=== PATIENT | male | born 1950 | race Caucasian/White ===

== ENCOUNTER 2019-04-17 00:14 | Outpatient (CLI) | payer MEDICARE, OTHER ==
[2019-04-17 13:07] LABS: Hemoglobin 13.6 g/dL (14.0-18.0); Mean Corpuscular HGB CONC 33.5 g/dL (32.0-36.0); Mean Corpuscular Hemoglobin 32.3 pg (27.0-31.0); Mean Corpuscular Volume 96.3 fL (78.0-98.0); Mean Platelet Volume 7.8 fL (7.4-10.4); Platelet Count 188 thou/uL (130-400); RBC Distribution Width 12.1 % (11.5-14.5); White Blood Cell (WBC) Count 7.1 thou/uL (4.8-10.8)
[2019-04-17 13:25] LABS: Anion Gap 13 mmol/L (10-20); BUN (Urea Nitrogen) 18 mg/dL (8.4-25.7); Calc. Creatinine Clearance 0 mL/min (70-130); Calcium 9.7 mg/dL (7.8-10.44); Carbon Dioxide 24 mmol/L (23-31); Chloride 105 mmol/L (98-107); Estimated GFR-MDRD 88; Glucose 102 mg/dL (80-115); Potassium 4.1 mmol/L (3.5-5.1); Sodium 138 mmol/L (136-145)
--- NOTE | 2019-04-18 20:24 | EKG ---
Test Reason : Blood Pressure : / mmHG Vent. Rate : 072 BPM Atrial Rate : 072 BPM P-R Int : 178 ms QRS Dur : 138 ms QT Int : 430 ms P-R-T Axes : 068 -54 088 degrees QTc Int : 470 ms Normal sinus rhythm Left axis deviation Left ventricular hypertrophy with QRS widening Abnormal ECG No previous ECGs available Confirmed by DR. Kristi LIVE MD ([id number]) on 04/18/2019 8:24:18 PM Referred By: LISA Confirmed By:DR. Kristi LIVE MD
== END 2019-04-17 00:15 | disposition home or self-care (01) ==
LOC: LABBT 00:14
PROVIDERS: ATTEND Thoracic Surgery (Cardiothoracic Vascular Surgery)
DX: Z01.818 Encounter for other preprocedural examination (principal); I25.10 Atherosclerotic heart disease of native coronary artery without angina pectoris
CPT/HCPCS: 80048; 85027; 93005; 93010

== ENCOUNTER 2019-04-17 11:30 | Inpatient (IN) | payer OTHER ==
[2019-04-18] MEDS ORDERED: Midazolam HCl 5 mg/5 ml Vial ONE (06:38)
[2019-04-18] MEDS ORDERED: Fentanyl 250 MCG/5 ML VIAL ONE ×2 (06:38)
[2019-04-18] MEDS ORDERED: Albumin 5% 500 ML ONE (06:45)
[2019-04-18] MEDS ORDERED: Heparin 10,000 UNITS/1 ML VIAL 30,000 UNITS in Sodium Chloride 0.9% 1,000 ML FS SCH (07:00)
[2019-04-18] MEDS ORDERED: Midazolam HCl 2 mg/2 ml Vial ONE (07:12)
[2019-04-18] MEDS ORDERED: Bisacodyl 10 MG SUPP PR PRN (11:09)
[2019-04-18] MEDS ORDERED: DOPamine 400 MG/D5W 250 ML 250 ML IVPB PRN (11:09)
[2019-04-18] MEDS ORDERED: Morphine 2 MG/ML SYRINGE SLOW IVP PRN (11:09)
[2019-04-18] MEDS ORDERED: Post-Op Insulin Drip Protocol IVPB ONE (11:09)
[2019-04-18] MEDS ORDERED: Acetaminophen 325 MG TAB PO PRN (11:09)
[2019-04-18] MEDS ORDERED: HYDROcodone/Acetaminophen 5/325 mg Tablet PO PRN (11:09)
[2019-04-18] MEDS ORDERED: Magnesium 2 GM/50 ML 2 GM in Premix Bag 1 BAG IVPB SCH (11:09)
[2019-04-18] MEDS ORDERED: Promethazine HCl 25 MG/ML VIAL IM PRN (11:09)
[2019-04-18] MEDS ORDERED: Fentanyl 100 MCG/2 ML VIAL SLOW IVP PRN ×2 (11:09)
[2019-04-18] MEDS ORDERED: Hetastarch 6% 500 ML 500 ML IVPB PRN (11:09)
[2019-04-18] MEDS ORDERED: hydrALAZINE 20 MG/ML VIAL SLOW IVP PRN (11:09)
[2019-04-18] MEDS ORDERED: Bisacodyl 5 MG TAB PO PRN (11:09)
[2019-04-18] MEDS ORDERED: Norepinephrine 8 MG/0.9% NS 250 ML IVPB PRN (11:09)
[2019-04-18] MEDS ORDERED: Mag-Al 1200 mg/1200 mg/30 ML UDCUP PO PRN (11:09)
[2019-04-18] MEDS ORDERED: Guaifenesin DM 100-10/5 ML UDCUP PO PRN (11:09)
[2019-04-18] MEDS ORDERED: Potassium Chloride 20 MEQ/100 ML PREMIX BAG IVPB PRN (11:09)
[2019-04-18] MEDS ORDERED: Nitroglycerin 50 MG/250 ML BOT 250 ML IVPB PRN (11:09)
[2019-04-18] MEDS ORDERED: HUMULIN R 100 UNITS in Sodium Chloride 0.9% 100 ML IVPB SCH (11:27)
[2019-04-18] MEDS ORDERED: Insulin Regular 300 UNITS/3 ML VIAL SC PRN (11:27)
[2019-04-18] MEDS ORDERED: Dextrose 50% Abboject 50 ML SYRINGE SLOW IVP PRN (11:27)
[2019-04-18] MEDS ORDERED: Dextrose 5% in Water 1,000 ML IV PRN (11:27)
[2019-04-18 11:33] LABS: Actual Bicarbonate (HCO3a) 23.4 mEq/L (22-28); Base Excess (BEa) -3.9 mEq/L (-2.0 to +3.0); CO2 Tension 51.6 mmHg (35.0-45.0); Calcium, Ionized 1.19 mmol/L (1.12-1.30); Carboxyhemoglobin (COHb) 0.9 gm% (0.0-3.0); Hemoglobin (Hb) 13.8 g/dL (14.0-18.0); O2 Tension (PaO2) 80.9 mmHg (> 80.0); Potassium - ABG Lab 4.79 mmol/L (3.70-5.30); pH, Arterial 7.28 (7.35-7.45)
[2019-04-18] MEDS ORDERED: Morphine 4 MG/ML VIAL ONE (11:33)
[2019-04-18 11:34] LABS: Puncture Site ALINE
[2019-04-18] MEDS ORDERED: Nitroglycerin 50 MG/250 ML BOT 250 ML ONE (11:35)
--- NOTE | 2019-04-18 11:35 | OP ---
DATE OF PROCEDURE: 04/18/2019 PREOPERATIVE DIAGNOSIS: Coronary artery disease. PROCEDURES PERFORMED: Coronary artery bypass graft x2, left internal mammary artery good quality to a 2 to 2.5 mm left anterior descending, saphenous vein good quality to a 1.5 mm diagonal prior to bifurcation. This was the second diagonal. The first diagonal was felt to be too small to graft. SOLAR LAB TECHNICIAN: Ramon. TRANSFUSION: None. DESCRIPTION OF PROCEDURE: After adequate anesthesia had been obtained, the patient was prepped and draped. Dr. Navarro did an endovascular vein harvest of the left greater saphenous vein while I performed a median sternotomy. The right pleura was entered distally and the left pleura was entered during left BEVERLEY harvest. After BEVERLEY harvest, heparin was given. The mammary divided distally, good flow, treated with intraluminal papaverine. A large amount of mediastinal fat was present and this was removed. This allowed the BEVERLEY to progress medial to the pleura with no specific coverage over it. Aorta and right atrium were cannulated and cardiopulmonary bypass was instituted. The patient had a very large heart, not particularly thick though. Aorta was crossclamped and a liter of cold blood cardioplegia was given. Following which, two distal anastomosis were completed. The crossclamp was removed. The partial occluding clamp was placed and a single proximal anastomosis performed on the aortic root and marked with a ring. The patient was then weaned from cardiopulmonary bypass. Cannula was removed. Protamine given systemically and the aortic cannulation site secured with a 4-0 Prolene suture. Mediastinal and bilateral pleural drains were placed, taking care to avoid the midline abdominal incision. Following this, the sternum was reapproximated with a combination of #7 interrupted wires and 3 zip ties in the body of the sternum. Vancomycin paste and platelet poor plasma were used on the bone and then, subcutaneous tissue respectively. Subcu and skin were closed in layers and the patient is to be taken to the ICU in guarded condition. Job ID: [id number]
[2019-04-18 11:43] LABS: INR-International Normal Ratio 1.2; PTT 24.2 SEC (22.9-36.1); Prothrombin Time 15.3 SEC (12.0-14.7)
[2019-04-18 11:56] LABS: Hemoglobin 12.9 g/dL (14.0-18.0); Mean Corpuscular HGB CONC 33.2 g/dL (32.0-36.0); Mean Corpuscular Hemoglobin 32.2 pg (27.0-31.0); Mean Corpuscular Volume 96.9 fL (78.0-98.0); Mean Platelet Volume 7.8 fL (7.4-10.4); Platelet Count 150 thou/uL (130-400); RBC Distribution Width 12.1 % (11.5-14.5); Red Blood Cell (RBC) Count 4.01 mill/uL (4.70-6.10); White Blood Cell (WBC) Count 19.4 thou/uL (4.8-10.8)
[2019-04-18 11:57] LABS: Anion Gap 14 mmol/L (10-20); BUN (Urea Nitrogen) 16 mg/dL (8.4-25.7); Calc. Creatinine Clearance 126 mL/min (70-130); Calcium 8.9 mg/dL (7.8-10.44); Carbon Dioxide 22 mmol/L (23-31); Chloride 105 mmol/L (98-107); Estimated GFR-MDRD 82; Glucose 171 mg/dL (80-115); Potassium 4.9 mmol/L (3.5-5.1); Sodium 136 mmol/L (136-145)
[2019-04-18] MEDS: BEER 1 CAN PO SCH ×2 (11:58→17:18)
[2019-04-18] MEDS: Lactated Ringer's 1,000 ML IV SCH ×2 (12:00→22:33)
[2019-04-18] MEDS: Ketorolac Tromethamine 30 MG/ML VIAL IVP SCH ×3 (12:01→23:29)
[2019-04-18] MEDS: Ondansetron PF 4 MG/2 ML Vial IVP PRN (12:03)
[2019-04-18 12:14] LABS: #Basophils 0.1 thou/uL (0.0-0.2); #Eosinphils 0.4 thou/uL (0.0-0.7); %Basophils 0.3 % (0.0-1.0); %Eosinophils 1.9 % (0.0-10.0); %Lymphocytes 10.3 % (21.0-51.0); %Monocytes 5.1 % (0.0-10.0); %Neutrophils 82.4 % (42.0-75.0); Band 11 % (5-11); Eosinophils 2 % (0-10); Lymphocytes 11 % (21-51); MDiff Complete? YES; Monocytes 7 % (0-10); Neutrophil 69 % (42-75); RBC Morphology Normal
--- NOTE | 2019-04-18 12:49 | RAD ---
CHEST 1 VIEW: Date: 04/18/19 HISTORY: Heart surgery. FINDINGS: Cardiac silhouette is magnified and upper limits of normal in size. Shallow inspiration accentuates p ulmonary markings. Mediastinum is midline with postoperative changes. Tip of an endotracheal catheter lies just above the level of the elinor. Radiopaque drain over the mediastinum. Tip of a right subcl altaf central venous catheter overlies the cavoatrial junction. Bilateral thoracostomy tubes in place . No gross pneumothorax on this portable supine exam. quality assurance monitor body leads overlie the chest. IMPRESSION: Postoperative changes of mediastinum with lines and tubes as detailed above. POS: CET
[2019-04-18] MEDS: CEFAZOLIN 2 GM in Premix Bag 1 BAG IVPB SCH ×2 (14:14→22:33)
[2019-04-18 14:16] LABS: Base Excess (BEa) -3.7 mEq/L (-2.0 to +3.0); CO2 Tension 42.3 mmHg (35.0-45.0); Calcium, Ionized 1.19 mmol/L (1.12-1.30); Carboxyhemoglobin (COHb) 1.2 gm% (0.0-3.0); Hemoglobin (Hb) 12.7 g/dL (14.0-18.0); O2 Tension (PaO2) 90.5 mmHg (> 80.0); Puncture Site ALINE; pH, Arterial 7.33 (7.35-7.45)
[2019-04-18 14:17] LABS: ALV-art Gradient 213.125 (0-20)
[2019-04-18] MEDS: HYDROcodone/Acetaminophen 5/325 mg Tablet PO PRN ×3 (15:13→23:29)
[2019-04-18 17:16] LABS: Potassium 4.5 mmol/L (3.5-5.1)
--- NOTE | 2019-04-18 20:31 | EKG ---
Test Reason : S/P CABG Blood Pressure : / mmHG Vent. Rate : 105 BPM Atrial Rate : 105 BPM P-R Int : 166 ms QRS Dur : 144 ms QT Int : 386 ms P-R-T Axes : 054 -52 101 degrees QTc Int : 510 ms Sinus tachycardia Left axis deviation Left bundle branch block Abnormal ECG When compared with ECG of 17-APR-2019 12:02, (Unconfirmed) Left bundle branch block is now Present Confirmed by CALOS DENNY, SFredrick ([id number]) on 04/18/2019 8:31:04 PM Referred By: LISA Confirmed By:DR. Kristi LIVE MD
--- NOTE | 2019-04-18 21:03 | CON ---
DATE OF CONSULTATION: 04/18/2019 REASON FOR CONSULTATION: CAD post CABG. HISTORY OF PRESENT ILLNESS: Mr. Randall is a pleasant 68-year-old white gentleman, who comes to the hospital as a planned bypass surgery, it was done earlier this morning by Dr. Pastor. He is a and gets most of his care at the [facility] in [place]. He had a heart catheterization done recently that showed a complex LAD diagonal bifurcating disease that was not amenable to catheter based revascularization, so he was referred for bypass surgery. He elected to come to Dr. Pastor for this who performed CABG x2 earlier today with a BANKS to the LAD and vein graft to a diagonal. He is doing very well. He is now extubated. He admits to some soreness on his chest, but this is related to his recent surgery. He has not passed any gas, however, he does not feel bloated in any way. PAST MEDICAL HISTORY: 1. Hyperlipidemia. 2. Hypertension. 3. GERD. 4. Gout. 5. CAD. 6. Sleep apnea. 7. Hiatal hernia. SOCIAL HISTORY: Drinks 6 beers a day. Quit smoking in 1988. No drug use. ALLERGIES: PRAVASTATIN. OUTPATIENT MEDICATIONS: 1. Atorvastatin 40 mg a day. 2. Amlodipine. 3. Allopurinol 100 mg q.i.d. 4. Aspirin 81 a day. 5. Omeprazole 20 mg a day. 6. Naproxen 500 mg b.i.d. 7. Lisinopril 40 mg a day. 8. Carvedilol 6.25 b.i.d. PAST SURGICAL HISTORY: 1. CABG x2 as above. 2. Bilateral total knee replacements. 3. Eyebrow lift. 4. Left CTR. REVIEW OF SYSTEMS: A 12-point review of systems was done and was all negative unless stated in the history of present illness. PHYSICAL EXAMINATION: VITAL SIGNS: Temperature 97.8, pulse is 97, respiratory rate 22, saturating 93% on room air, and blood pressure 141/59. GENERAL: Awake, alert, and oriented x3. No distress. HEENT: Normocephalic, atraumatic. NECK: Supple. LUNGS: Clear. CARDIOVASCULAR: S1 and S2. No S3 or S4. No murmurs. ABDOMEN: Soft. Positive bowel sounds. EXTREMITIES: 1+ edema. SKIN: Warm and dry. LABORATORY DATA: Laboratory work was reviewed. White count of 19, hemoglobin of 12, hematocrit 38, and platelet count of 150. Coags reviewed. ABG was reviewed. Chemistries were reviewed. Most recent; sodium 136, potassium 4.9, chloride 105, carbon dioxide of 22, anion gap of 14, BUN of 16, creatinine 0.92, GFR of 82. ASSESSMENT AND PLAN: 1. Coronary artery disease, status post coronary artery bypass grafting x2 with a BANKS to the LAD and a vein graft to the diagonal. 2. Hypertension. 3. Hyperlipidemia. PLAN: 1. Continue postoperative care. 2. Continue incentive spirometer use. 3. Start physical therapy as soon as tolerated and increase as tolerated. 4. Aspirin and statin for life. 5. We will restart a beta jose cruz and ALEJANDRA inhibitor if the blood pressure remains stable. Thank you for letting me to participate in the care of your patient. We will follow. Job ID: [id number]
[2019-04-18] MEDS: Atorvastatin Calcium 40 MG TAB PO SCH (22:33)
[2019-04-18] MEDS: Famotidine/PF 20 mg/2ml Vial SLOW IVP SCH (22:33)
[2019-04-19] MEDS: HYDROcodone/Acetaminophen 5/325 mg Tablet PO PRN ×5 (04:02→21:24)
[2019-04-19 04:30] LABS: #Basophils 0.1 thou/uL (0.0-0.2); #Eosinphils 0.1 thou/uL (0.0-0.7); #Lymphocytes 1.6 thou/uL (1.20-3.40); #Monocytes 1.2 thou/uL (0.11-0.59); %Basophils 0.5 % (0.0-1.0); %Eosinophils 1.4 % (0.0-10.0); %Lymphocytes 16.3 % (21.0-51.0); %Monocytes 11.5 % (0.0-10.0); %Neutrophils 70.2 % (42.0-75.0); Hemoglobin 11.4 g/dL (14.0-18.0); Mean Corpuscular HGB CONC 34.2 g/dL (32.0-36.0); Mean Corpuscular Hemoglobin 33.3 pg (27.0-31.0); Mean Corpuscular Volume 97.3 fL (78.0-98.0); Platelet Count 129 thou/uL (130-400); Red Blood Cell (RBC) Count 3.43 mill/uL (4.70-6.10)
[2019-04-19 04:52] LABS: Anion Gap 9 mmol/L (10-20); BUN (Urea Nitrogen) 16 mg/dL (8.4-25.7); Calc. Creatinine Clearance 139 mL/min (70-130); Calcium 8.5 mg/dL (7.8-10.44); Carbon Dioxide 27 mmol/L (23-31); Chloride 103 mmol/L (98-107); Estimated GFR-MDRD 90; Glucose 103 mg/dL (80-115); Potassium 4.1 mmol/L (3.5-5.1); Sodium 135 mmol/L (136-145)
[2019-04-19] MEDS: Ketorolac Tromethamine 30 MG/ML VIAL IVP SCH ×3 (06:16→17:15)
[2019-04-19] MEDS: CEFAZOLIN 2 GM in Premix Bag 1 BAG IVPB SCH (06:17)
--- NOTE | 2019-04-19 07:44 | RAD ---
AP view chest HISTORY: Open heart surgery. AP view chest is obtained on 04/19/2019. Comparison made to previous exam from 04/18/2019. AP view chest demonstrates interval extubation of the patient. Sternotomy wires again seen. Mediastinal surgical drains in place. Right subclavian central line in place. Cardiomegaly seen. There are areas of linear density in both lung bases compatible with bibasilar atelectasis. No evidence of pneumothorax seen. IMPRESSION: Interval extubation of the patient.
[2019-04-19] MEDS: Famotidine/PF 20 mg/2ml Vial SLOW IVP SCH ×2 (08:11→20:25)
[2019-04-19] MEDS: Carvedilol 3.125 MG TAB PO SCH ×2 (08:12→17:15)
[2019-04-19] MEDS: Ondansetron PF 4 MG/2 ML Vial IVP PRN (08:17)
[2019-04-19] MEDS: BEER 1 CAN PO SCH ×3 (08:40→12:46)
[2019-04-19] MEDS ORDERED: Atorvastatin Calcium 40 MG TAB PO SCH (09:00)
[2019-04-19] MEDS ORDERED: Aspirin 325 MG TAB PO SCH (09:00)
[2019-04-19 10:43] VITALS: BMI 35.4
--- NOTE | 2019-04-19 18:19 | PDOC.CTH ---
Cardiology Progress Note - Subjective Had a syncopal spell today after dry heaving. - Objective Vital Signs Temp Pulse Ox 04/19/19 16:00 97.9 F 04/19/19 12:00 98.7 F 04/19/19 11:00 98 F 04/19/19 08:00 98.6 F 98 Weight 252 lb 10.396 oz 04/18/19 04/19/19 04/20/19 06:59 06:59 06:59 Intake Total 2088.5 820 Output Total 1545 790 Balance 543.5 30 - Physical Examination General/Neuro: alert & oriented x3, NAD Neck: no JVD present Lungs: CTA, unlabored respirations Heart: RRR Abdomen: NT/ND Extremities: + edema B (1+) - Telemetry Telemetry Rhythm: NSR - Labs Result Diagrams: 04/19/19 04:15 04/19/19 04:15 - Assessment/Plan 1. Multivessel CAD. 2. S/P CABG x 2 BANKS to LAD and SVG to diagonal. 3. HTN 4. HLP. PLAN: - Echo to be done - Will add ACEI - Continue ASA/statin/BB. - PT as tolerated. - Syncope likely from dry heaving.
[2019-04-19] MEDS: Atorvastatin Calcium 40 MG TAB PO SCH (20:25)
[2019-04-20] MEDS: Ketorolac Tromethamine 30 MG/ML VIAL IVP SCH ×2 (00:15→06:09)
[2019-04-20] MEDS: HYDROcodone/Acetaminophen 5/325 mg Tablet PO PRN ×4 (04:15→20:18)
[2019-04-20 04:28] LABS: #Eosinphils 0.5 thou/uL (0.0-0.7); #Lymphocytes 1.7 thou/uL (1.20-3.40); #Monocytes 1.2 thou/uL (0.11-0.59); #Neutrophils 6.9 thou/uL (1.40-6.50); %Basophils 0.2 % (0.0-1.0); %Eosinophils 4.5 % (0.0-10.0); %Lymphocytes 16.6 % (21.0-51.0); %Monocytes 11.7 % (0.0-10.0); %Neutrophils 67.1 % (42.0-75.0); Hemoglobin 10.7 g/dL (14.0-18.0); Mean Corpuscular HGB CONC 34.2 g/dL (32.0-36.0); Mean Corpuscular Hemoglobin 33.2 pg (27.0-31.0); Mean Corpuscular Volume 97.1 fL (78.0-98.0); Mean Platelet Volume 8.1 fL (7.4-10.4); Platelet Count 124 thou/uL (130-400); RBC Distribution Width 11.9 % (11.5-14.5); Red Blood Cell (RBC) Count 3.23 mill/uL (4.70-6.10); White Blood Cell (WBC) Count 10.3 thou/uL (4.8-10.8)
[2019-04-20 04:56] LABS: Anion Gap 10 mmol/L (10-20); BUN (Urea Nitrogen) 18 mg/dL (8.4-25.7); Calc. Creatinine Clearance 139 mL/min (70-130); Calcium 8.7 mg/dL (7.8-10.44); Carbon Dioxide 28 mmol/L (23-31); Chloride 103 mmol/L (98-107); Estimated GFR-MDRD 90; Glucose 126 mg/dL (80-115); Potassium 3.8 mmol/L (3.5-5.1); Sodium 137 mmol/L (136-145)
[2019-04-20] MEDS ORDERED: Bisacodyl 5 MG TAB PO PRN (06:53)
[2019-04-20] MEDS ORDERED: Acetaminophen 325 MG TAB PO PRN (06:53)
[2019-04-20] MEDS ORDERED: Guaifenesin DM 100-10/5 ML UDCUP PO PRN (06:53)
[2019-04-20] MEDS ORDERED: Mag-Al 1200 mg/1200 mg/30 ML UDCUP PO PRN (06:53)
[2019-04-20] MEDS ORDERED: Bisacodyl 10 MG SUPP PR PRN (06:53)
[2019-04-20] MEDS ORDERED: HYDROcodone/Acetaminophen 5/325 mg Tablet PO PRN (06:53)
[2019-04-20] MEDS ORDERED: Milk Of Magnesia 30 ML UDCUP PO PRN (06:53)
[2019-04-20] MEDS ORDERED: Nitroglycerin 0.4 MG TAB (25 Tab Bottle) SL PRN (06:53)
[2019-04-20] MEDS ORDERED: Fentanyl 100 MCG/2 ML VIAL SLOW IVP PRN ×2 (06:53)
[2019-04-20] MEDS: Potassium Chloride 10 MEQ TAB PO SCH (07:56)
[2019-04-20] MEDS: Carvedilol 3.125 MG TAB PO SCH ×2 (07:56→17:08)
[2019-04-20] MEDS: Furosemide 40 MG TAB PO SCH (07:57)
[2019-04-20] MEDS: Famotidine 20 MG TAB PO SCH ×2 (07:57→20:18)
[2019-04-20] MEDS: Aspirin 325 mg Enteric Coated Tablet PO SCH (07:57)
--- NOTE | 2019-04-20 07:57 | RAD ---
XR Chest 1 View Portable History: [Open heart surgery] Comparison: Radiograph prior day Findings: Right subclavian central venous catheter is in place with tip at the cavoatrial junction. M ultiple midline sternotomy wires. No pneumothorax. Trace pleural fluid. Impression: Similar examination of the chest.
[2019-04-20] MEDS: BEER 1 CAN PO SCH ×3 (08:01→17:10)
[2019-04-20] MEDS ORDERED: Lisinopril 5 MG TAB PO SCH (09:00)
--- NOTE | 2019-04-20 13:20 | PDOC.CTH ---
Cardiology Progress Note - Subjective No new issues. Passing gas but no BM. - Objective Vital Signs Temp Pulse Pulse Pulse Resp BP BP 04/20/19 11:05 98.2 F 81 18 04/20/19 09:06 82 93 97/65 133/74 04/20/19 07:00 98.8 F 04/20/19 05:00 99.2 F BP Pulse Ox Pulse Ox Pulse Ox 04/20/19 11:05 123/62 97 04/20/19 09:06 98 94 L 04/20/19 07:00 04/20/19 05:00 Weight 252 lb 10.396 oz 04/19/19 04/20/19 04/21/19 06:59 06:59 06:59 Intake Total 2088.5 1070 240 Output Total 1545 1430 Balance 543.5 -360 240 - Physical Examination General/Neuro: alert & oriented x3, NAD Neck: no JVD present Lungs: CTA, unlabored respirations Heart: RRR Abdomen: NT/ND Extremities: + edema B (1+) - Telemetry Telemetry Rhythm: NSR - Labs Result Diagrams: 04/20/19 04:10 04/20/19 04:10 - Assessment/Plan 1. Multivessel CAD. 2. S/P CABG x 2 BANKS to LAD and SVG to diagonal. 3. HTN 4. HLP. PLAN: - ACEI once BP allows. - Continue ASA/statin/BB. - PT as tolerated. - Syncope likely from dry heaving. - May transfer to telemetry.
[2019-04-20] MEDS: Ondansetron PF 4 MG/2 ML Vial IVP PRN ×2 (15:23→22:24)
[2019-04-20] MEDS: Atorvastatin Calcium 40 MG TAB PO SCH (20:18)
[2019-04-21] MEDS: HYDROcodone/Acetaminophen 5/325 mg Tablet PO PRN ×3 (02:48→18:09)
[2019-04-21] MEDS ORDERED: Sodium Chloride 0.9% 10 ML ONE (08:39)
[2019-04-21] MEDS: Furosemide 40 MG TAB PO SCH (08:57)
[2019-04-21] MEDS: BEER 1 CAN PO SCH ×3 (08:57→17:00)
[2019-04-21] MEDS: Aspirin 325 mg Enteric Coated Tablet PO SCH (08:57)
[2019-04-21] MEDS: Potassium Chloride 10 MEQ TAB PO SCH (08:57)
[2019-04-21] MEDS: Carvedilol 3.125 MG TAB PO SCH (08:57)
[2019-04-21] MEDS: Famotidine 20 MG TAB PO SCH ×2 (08:57→20:00)
[2019-04-21] MEDS ORDERED: Polyethylene Glycol 3350 17 GM Packet PO PRN (10:03)
--- NOTE | 2019-04-21 12:34 | RAD ---
EXAM: Chest one view: HISTORY: Status post coronary bypass graft. COMPARISON: 04/20/2019 FINDINGS: Right central line. No pneumothorax. Heart size: Within normal limits. The lungs: Clear of acute process. No evidence for pneumonia, pleural effusion, acute edema, or pneumothorax, or other significant acute process. IMPRESSION: No significant acute intrathoracic disease. Overall improvement from prior study.
--- NOTE | 2019-04-21 14:52 | PDOC.CTH ---
Cardiology Progress Note - Subjective The pt seen and examined. No overnight events. No cardiac complaints. - Objective Vital Signs Temp Pulse Pulse Pulse Resp BP BP 04/21/19 11:57 99.5 F 89 16 04/21/19 09:31 94 74 180/86 H 163/74 H 04/21/19 08:00 97.9 F 85 16 04/21/19 04:00 99.5 F 89 18 BP Pulse Ox Pulse Ox Pulse Ox 04/21/19 11:57 139/79 04/21/19 09:31 94 L 96 04/21/19 08:00 127/68 93 L 04/21/19 04:00 123/64 93 L Weight 245 lb 6.4 oz 04/20/19 04/21/19 04/22/19 06:59 06:59 06:59 Intake Total 1070 1740 Output Total 1430 1730 Balance -360 10 - Physical Examination General/Neuro: alert & oriented x3 Neck: no JVD present Lungs: CTA (diminished at bases) Heart: RRR Abdomen: soft Extremities: other: (1+ pitting BLE edema) - Telemetry Telemetry Rhythm: SR 90s - Labs Result Diagrams: 04/20/19 04:10 04/20/19 04:10 - Assessment/Plan 1. Multivessel CAD with S/P CABG x 2 BANKS to LAD and SVG to diagonal on 2018 - Stable; On ASA 325mg qd, Lipitor 40mg qd, and Coreg which will be increased from 3.125mg to 6.25mg BID from this PM. Will start ALEJANDRA/ARB with more stable VS. 2. HTN - stable; 4. HLD - on Statin. 5. S/p Syncopal episode - likely from dry heaving. He stated he has not had syncopal episodes since last night. MAR reviewed Pt. seen and eval. by me. I agree with the A/P by the BUSINESS OPERATIONS MANAGER.He remains in NSR. Chest clear. RRR Review of Systems - Review of Systems Constitutional: reports: no symptoms reported EENTM: reports: no symptoms reported Respiratory: reports: no symptoms reported Cardiac (ROS): reports: no symptoms reported ABD/GI: reports: no symptoms reported : reports: no symptoms reported Musculoskeletal: reports: no symptoms reported
[2019-04-21] MEDS: Carvedilol 6.25 MG TAB PO SCH (17:55)
[2019-04-21] MEDS: Atorvastatin Calcium 40 MG TAB PO SCH (19:55)
[2019-04-22] MEDS: HYDROcodone/Acetaminophen 5/325 mg Tablet PO PRN ×2 (00:18→07:03)
[2019-04-22 07:29] VITALS: TEMP 97.7
[2019-04-22] MEDS: Aspirin 325 mg Enteric Coated Tablet PO SCH (08:27)
[2019-04-22] MEDS: Potassium Chloride 10 MEQ TAB PO SCH (08:27)
[2019-04-22] MEDS: BEER 1 CAN PO SCH ×2 (08:27→11:16)
[2019-04-22] MEDS: Carvedilol 6.25 MG TAB PO SCH (08:27)
[2019-04-22] MEDS: Famotidine 20 MG TAB PO SCH (08:28)
[2019-04-22] MEDS: Furosemide 40 MG TAB PO SCH (08:28)
[2019-04-22] MEDS ORDERED: Lisinopril 5 MG TAB PO SCH (09:00)
[2019-04-22 09:15] VITALS: BP 170/79
[2019-04-24 09:36] LABS: Actual Bicarbonate (HCO3a) 24.1 mEq/L (22-28); Analyzer IN Cardio OR; Base Excess (BEa) -1.1 mEq/L (-2.0 to +3.0); CO2 Tension 42.5 mmHg (35.0-45.0); Calcium, Ionized 1.15 mmol/L (1.12-1.30); Carboxyhemoglobin (COHb) 0.9 gm% (0.0-3.0); Hemoglobin (Hb) 12.7 g/dL (14.0-18.0); Potassium - ABG Lab 4.05 mmol/L (3.70-5.30); pH, Arterial 7.37 (7.35-7.45)
[2019-04-24 09:36] LABS: Actual Bicarbonate (HCO3a) 22.8 mEq/L (22-28); Analyzer IN Cardio OR; Base Excess (BEa) -2.2 mEq/L (-2.0 to +3.0); CO2 Tension 39.9 mmHg (35.0-45.0); Calcium, Ionized 1.12 mmol/L (1.12-1.30); Carboxyhemoglobin (COHb) 0.6 gm% (0.0-3.0); Hemoglobin (Hb) 12.4 g/dL (14.0-18.0); Potassium - ABG Lab 4.59 mmol/L (3.70-5.30); pH, Arterial 7.37 (7.35-7.45)
[2019-04-24 09:37] LABS: Actual Bicarbonate (HCO3v) 25 mEq/L (22-28); Analyzer IN Cardio OR; Base Excess -0.9 mEq/L (-2.0 to +3.0); Calcium, Ionized 1.05 mmol/L (1.16-1.32); Chloride (ABG LAB) 103 mmol/L (98-106); Hemoglobin (Hb) 10.1 g/dL (12.6-17.4); Potassium - ABG Lab 5.18 mmol/L (3.70-5.30); Sodium 133.6 mmol/L (133-146); pH (venous) 7.35 (7.32-7.43)
[2019-04-24 09:37] LABS: Actual Bicarbonate (HCO3a) 23.4 mEq/L (22-28); Analyzer IN Cardio OR; Base Excess (BEa) -1.5 mEq/L (-2.0 to +3.0); Calcium, Ionized 1.02 mmol/L (1.12-1.30); Carboxyhemoglobin (COHb) 0.3 gm% (0.0-3.0); O2 Tension (PaO2) 483.2 mmHg (> 80.0); Potassium - ABG Lab 5.37 mmol/L (3.70-5.30); pH, Arterial 7.39 (7.35-7.45)
[2019-04-24 09:38] LABS: Actual Bicarbonate (HCO3a) 22.4 mEq/L (22-28); Analyzer IN Cardio OR; Base Excess (BEa) -1.2 mEq/L (-2.0 to +3.0); CO2 Tension 32.9 mmHg (35.0-45.0); Carboxyhemoglobin (COHb) 0.1 gm% (0.0-3.0); Hemoglobin (Hb) 9.4 g/dL (14.0-18.0); O2 Tension (PaO2) 390.5 mmHg (> 80.0); Potassium - ABG Lab 5.97 mmol/L (3.70-5.30); pH, Arterial 7.45 (7.35-7.45)
[2019-04-24 09:39] LABS: Actual Bicarbonate (HCO3a) 21.5 mEq/L (22-28); Analyzer IN Cardio OR; Base Excess (BEa) -4.1 mEq/L (-2.0 to +3.0); CO2 Tension 41.6 mmHg (35.0-45.0); Calcium, Ionized 1.13 mmol/L (1.12-1.30); Carboxyhemoglobin (COHb) 0.6 gm% (0.0-3.0); Hemoglobin (Hb) 12.4 g/dL (14.0-18.0); O2 Tension (PaO2) 357.7 mmHg (> 80.0); Potassium - ABG Lab 4.82 mmol/L (3.70-5.30); pH, Arterial 7.33 (7.35-7.45)
[2019-04-24 10:26] LABS: Puncture Site ALINE
[2019-04-24 10:27] LABS: Puncture Site ALINE
[2019-04-24 10:28] LABS: Puncture Site ALINE
[2019-04-24 10:29] LABS: Puncture Site ALINE
[2019-04-24 10:30] LABS: Puncture Site ALINE
== END 2019-04-22 11:53 | disposition home or self-care (01) | DRG 236 ==
LOC: SURG A 04-18 05:47 → CCU 04-18 09:34 → 2NO 04-20 11:05
PROVIDERS: ADMIT Thoracic Surgery (Cardiothoracic Vascular Surgery); ATTEND Thoracic Surgery (Cardiothoracic Vascular Surgery)
PROC: 02100Z9 Bypass Coronary Artery, One Artery from Left Internal Mammary, Open Approach (ICD-10-PCS; principal; 2019-04-18)
PROC: 021009W Bypass Coronary Artery, One Artery from Aorta with Autologous Venous Tissue, Open Approach (ICD-10-PCS; 2019-04-18)
PROC: 06BQ4ZZ Excision of Left Saphenous Vein, Percutaneous Endoscopic Approach (ICD-10-PCS; 2019-04-18)
PROC: 5A1221Z Performance of Cardiac Output, Continuous (ICD-10-PCS; 2019-04-18)
DX: I25.10 Atherosclerotic heart disease of native coronary artery without angina pectoris (principal); I10 Essential (primary) hypertension; E78.5 Hyperlipidemia, unspecified; K21.9 Gastro-esophageal reflux disease without esophagitis; M10.9 Gout, unspecified; Z96.653 Presence of artificial knee joint, bilateral; G47.00 Insomnia, unspecified; Z79.82 Long term (current) use of aspirin; Z87.891 Personal history of nicotine dependence; Z88.8 Allergy status to other drugs, medicaments and biological substances
CPT/HCPCS: 36415; 36416; 36430; 71045; 80048; 82805; 82947; 85025; 85027; 85610; 85730; 86850; 86900; 86901; 93005; 93010; 93798; 94002; 94150; J0360; J0690; J1644; J1815; J1885; J2250; J2270; J2405; J2550; J3010; J3475; J3480; J3490; J7050; P9045; S0028

== ENCOUNTER 2023-02-27 19:50 | Emergency (ER) | payer OTHER ==
[~2023-02-27 19:50] MED LIST: Iopamidol-370 76% 500 ML MDV (1 ML CHARGE) ONE
[2023-02-27 20:14] LABS: #Basophils 0.1 thou/uL (0.0-0.2); #Eosinphils 0.5 thou/uL (0.0-0.7); #Lymphocytes 2.8 thou/uL (1.20-3.40); #Monocytes 0.8 thou/uL (0.11-0.59); #Neutrophils 5.8 thou/uL (1.40-6.50); %Basophils 0.8 % (0.0-1.0); %Eosinophils 4.8 % (0.0-10.0); %Lymphocytes 28.4 % (21.0-51.0); %Monocytes 7.9 % (0.0-10.0); %Neutrophils 58.2 % (42.0-75.0); Mean Corpuscular HGB CONC 35.4 g/dL (32.0-36.0); Mean Corpuscular Hemoglobin 34.7 pg (27.0-31.0); Mean Corpuscular Volume 98.2 fl (78.0-98.0); Mean Platelet Volume 7.7 fL (7.4-10.4); Platelet Count 200 10x3/uL (130-400); RBC Distribution Width 11.7 % (11.5-14.5); Red Blood Cell (RBC) Count 4.04 mill/uL (4.70-6.10); White Blood Cell (WBC) Count 9.9 10x3/uL (4.8-10.8)
[2023-02-27 20:25] LABS: INR-International Normal Ratio 0.9; PTT 23.8 sec (22.9-36.1); Prothrombin Time 12.6 sec (12.0-14.7)
[2023-02-27] MEDS ORDERED: Boostrix 0.5 ML (Tdap) VIAL (>/=7 yrs of age) ONE ×2 (20:27→22:41)
[2023-02-27 20:41] LABS: Acetaminophen Less than 10.0 mcg/mL (10.0-30.0); Alcohol 300 mg/dL (Less than 10); CK (CPK) 150 U/L (30-200); Salicylate Less than 8.0 mg/dL (15.0-30.0)
[2023-02-27 20:53] LABS: ALT (SGPT) 10 U/L (8-55); AST (SGOT) 18 U/L (5-34); Albumin 4.2 g/dL (3.4-4.8); Alkaline Phosphatase 60 U/L (40-110); Anion Gap 19 mmol/L (10-20); BUN (Urea Nitrogen) 19 mg/dL (8.4-25.7); Bilirubin, Total 0.4 mg/dL (0.2-1.2); Calc. Creatinine Clearance 0 mL/min (70-130); Calcium 9.1 mg/dL (7.8-10.44); Carbon Dioxide 21 mmol/L (23-31); Chloride 103 mmol/L (98-107); Estimated GFR 58; Globulin 2.9 g/dL (2.4-3.5); Glucose 106 mg/dL (80-115); Lipase 53 U/L (8-78); Potassium 4.6 mmol/L (3.5-5.1); Protein, Total 7.1 g/dL (5.8-8.1); Sodium 138 mmol/L (136-145)
[2023-02-27 20:56] LABS: Bilirubin Negative (Negative); Blood, Urine Negative (Negative); Clarity Clear (Clear); Glucose, Urine (Dipstick) >=1000 mg/dL (Negative); Ketone, Urine Negative (Negative); Leukocyte Negative Leu/uL (Negative); Nitrite Negative (Negative); Protein, Urine (Dipstick) Negative (Neg-Trace); Specific Gravity, Urine 1.009 (1.002-1.036); Urobilinogen Normal mg/dL (Less than 2); pH, Urine 5.5 (5.0-9.0)
[2023-02-27 21:04] LABS: Amphetamine Not Detected (NotDetected); Barbiturates Screen Not Detected (NotDetected); Benzodiazepine Screen Not Detected (NotDetected); Cocaine Metabolite Screen Not Detected (NotDetected); Methadone Not Detected (NotDetected); Methamphetamine Not Detected (NotDetected); Opiate Screen Not Detected (NotDetected); Oxycodone Screen Not Detected (NotDetected); Phencyclidine (PCP) Not Detected (NotDetected); THC/Cannabinoid Screen Not Detected (NotDetected); Tricyclic Screen Not Detected (NotDetected)
[2023-02-27] MEDS ORDERED: Lidocaine 1% PF 5 ML VIAL ONE (22:01)
== END 2023-02-27 22:30 | disposition home or self-care (01) ==
LOC: ERS 19:50
DX: S05.12XA Contusion of eyeball and orbital tissues, left eye, initial encounter (principal); S09.90XA Unspecified injury of head, initial encounter; F10.129 Alcohol abuse with intoxication, unspecified; V89.2XXA Person injured in unspecified motor-vehicle accident, traffic, initial encounter; Z23 Encounter for immunization
CPT/HCPCS: 12011; 70450; 71045; 71260; 72125; 72170; 74177; 80053; 80306; 80307; 81003; 82550; 83605; 83690; 85025; 85610; 85730; 86850; 86900; 86901; 90471; 90715; 93005; G0390; Q9967